=== PATIENT | female | born 1965 | race Caucasian/White ===

== ENCOUNTER 2018-02-27 01:22 | Emergency (ER) | payer OTHER ==
[~2018-02-27] VITALS: Ht 160 cm; Wt 72.6 kg
[~2018-02-27 01:22] MED LIST: AMOXICILLIN500 M2 PO; CELEXA40 MG PO; HYDROCODONE BIT1 T11 PO; MOTRIN800 MG PO; NORFLEX100 MG PO; PREDNISONE50 MG PO
[2018-02-27 01:24] VITALS: BP 124/79
== END 2018-02-27 02:45 | disposition home or self-care (01) ==
LOC: ED 01:22
DX: S62.396A Other fracture of fifth metacarpal bone, right hand, initial encounter for closed fracture (principal); Z79.899 Other long term (current) drug therapy; W19.XXXA Unspecified fall, initial encounter; Y93.89 Activity, other specified; Y92.89 Other specified places as the place of occurrence of the external cause; Y99.8 Other external cause status

== ENCOUNTER → 2018-06-01 | Outpatient (CLI) | payer OTHER ==
[~2018-06-01] MED LIST changes: +CYCLOBENZAPRINE5 M3 PO; +Motrin,Rufen800 MG PO
== END | disposition home or self-care (01) ==
LOC: MRI 11:00
DX: S62.346D Nondisplaced fracture of base of fifth metacarpal bone, right hand, subsequent encounter for fracture with routine healing (principal); S62.15 Fracture of hook process of hamate [unciform] bone; X58.XXXD Exposure to other specified factors, subsequent encounter

== ENCOUNTER → 2018-06-29 | Day surgery (SDC) | payer OTHER ==
[2018-06-29 08:18] LABS: ACT PARTIAL THROMBO TIME 26.3 SECONDS (20.8-31.5)
== END | disposition home or self-care (01) ==
LOC: SDC 02:05 → RAD 08:00 → SDC 11:00
PROVIDERS: Orthopaedic Surgery Sports Medicine
DX: M19.041 Primary osteoarthritis, right hand (principal)

== ENCOUNTER 2018-08-01 17:54 | Emergency (ER) | payer OTHER ==
[~2018-08-01] VITALS: Ht 160 cm; Wt 81.6 kg
[~2018-08-01 17:54] MED LIST changes: -CYCLOBENZAPRINE5 M3 PO; -Motrin,Rufen800 MG PO
[2018-08-01 17:56] VITALS: BP 147/97
[2018-08-01] MEDS ORDERED: CYCLOBENZAPRINE5 M3 PO (20:06)
[2018-08-01] MEDS ORDERED: Motrin,Rufen800 MG PO (20:06)
== END 2018-08-01 20:46 | disposition home or self-care (01) ==
LOC: ED 17:54
DX: S61.012A Laceration without foreign body of left thumb without damage to nail, initial encounter (principal); S16.1XXA Strain of muscle, fascia and tendon at neck level, initial encounter; S20.211A Contusion of right front wall of thorax, initial encounter; Z79.899 Other long term (current) drug therapy; V89.2XXA Person injured in unspecified motor-vehicle accident, traffic, initial encounter; Y93.89 Activity, other specified; Y92.488 Other paved roadways as the place of occurrence of the external cause; Y99.8 Other external cause status

== ENCOUNTER 2018-08-10 12:55 | Emergency (ER) | payer OTHER ==
[~2018-08-10] VITALS: Ht 160 cm; Wt 77.1 kg
[~2018-08-10 12:55] MED LIST changes: +CYCLOBENZAPRINE5 M3 PO; +Motrin,Rufen800 MG PO
[2018-08-10 12:56] VITALS: BP 176/96
== END 2018-08-10 15:38 | disposition home or self-care (01) ==
LOC: ED 12:55
DX: S29.012A Strain of muscle and tendon of back wall of thorax, initial encounter (principal); S20.211A Contusion of right front wall of thorax, initial encounter; Z79.899 Other long term (current) drug therapy; V49.88XA Car occupant (driver) (passenger) injured in other specified transport accidents, initial encounter; Y93.I9 Activity, other involving external motion; Y92.488 Other paved roadways as the place of occurrence of the external cause; Y99.8 Other external cause status